=== PATIENT | male | born 1960 | race Caucasian/White ===

== ENCOUNTER 2017-05-16 05:39 | Day surgery (SDC) | payer OTHER ==
--- NOTE | ~2017-05-16 | OP ---
PATIENT NAME: KATIA MCDERMOTT MEDICAL RECORD: [id number] :60 LOCATION:D.OPS ADMISSION DATE: SURGEON: KERON TROTTER MD DATE OF OPERATION: 05/16/2017 PREOPERATIVE DIAGNOSIS: Lateral meniscus tear. POSTOPERATIVE DIAGNOSIS: Lateral meniscus tear. PROCEDURE: Arthroscopic partial lateral meniscectomy. SURGEON: Keron Trotter MD ANESTHESIA: General. INTRAOPERATIVE COMPLICATIONS: None. SUMMARY OF PATHOLOGIC FINDINGS: The patient had a very small, but complex tear of the posterior horn of the lateral meniscus requiring debridement. OPERATIVE SUMMARY IN DETAIL: After obtaining the preoperative orthopedic surgery consent as well as anesthetic consultation, evaluation and clearance, the patient was brought to the operative suite and placed in the operating table in supine position. After general laryngeal mask airway was administered, tourniquet was placed about the proximal aspect of the right lower extremity. Right lower extremity was then prepped and draped in routine sterile fashion. The leg was elevated and exsanguinated, tourniquet inflated to 350 mmHg. Routine inferolateral portal was established followed by superomedial portal and inferomedial portal. Diagnostic arthroscopy was then done and medial compartment was relatively clean lateral compartment and a complex tear of the posterior horn of the lateral meniscus consistent with preoperative diagnosis. Combination of arthroscopic meniscotomes as well as an arthroscopic resector were utilized to debride the torn portion of the lateral meniscus. Having completed this, arthroscopy portals were closed in routine interrupted fashion using 4-0 Prolene. Sterile dressings were applied. The patient was awakened, taken to the recovery room in stable condition. All final needle and sponge counts were correct. TRANSINT:[id number] Voice Confirmation ID: [id number] DOCUMENT ID: [id number] KERON TROTTER MD at 0827 CC: [id number] DICTATION DATE: 06/05/17 1632 HEADING MACHINE OPERATOR: 06/05/17 1715 [facility] 05/16/17 [id number] [place] [address]
[~2017-05-16 05:39] MED LIST: ZESTRIL20 MG PO
[2017-05-16 06:08] LABS: HEMATOCRIT 45.9 % (42.0-54.0); HEMOGLOBIN 15.2 g/dL (13.5-17.5); MCH 29.4 pg (26.0-34.0); MCHC 33.1 g/dL (31.0-37.0); MCV 88.8 fL (80.0-100.0); MEAN PLATELET VOLUME 10.7 fL (7.4-10.4); RBC 5.17 10x6/uL (4.20-6.10); RDW 13.2 % (11.5-14.5); WBC 10.8 10x3/uL (4.8-10.8)
[2017-05-16 06:21] VITALS: BMI 32.6
[2017-05-16] MEDS ORDERED: HYDROCODONE-APA1 TAB PO (08:42)
== END 2017-05-16 10:44 | disposition home or self-care (01) ==
LOC: D.OPS 05:39 → D.PAN 08:15 → D.OPS 08:15
PROVIDERS: Anesthesiology
DX: S83.281A Other tear of lateral meniscus, current injury, right knee, initial encounter (principal); I10 Essential (primary) hypertension; K21.9 Gastro-esophageal reflux disease without esophagitis; Z01.812 Encounter for preprocedural laboratory examination